=== PATIENT | male | born 1990 | race Caucasian/White ===

== ENCOUNTER 2019-02-11 09:47 | Emergency (ER) | payer OTHER ==
[~2019-02-11] VITALS: Ht 180.3 cm; Wt 90.7 kg
[2019-02-11 09:57] VITALS: Ht 180.3 cm; Wt 90.7 kg
[2019-02-11 13:43] VITALS: BP 103/75
== END 2019-02-11 13:43 | disposition home or self-care (01) ==
LOC: ED 09:47
DX: S80.02XA Contusion of left knee, initial encounter (principal); W31.89XA Contact with other specified machinery, initial encounter; Y93.89 Activity, other specified; Y92.89 Other specified places as the place of occurrence of the external cause; Y99.8 Other external cause status
CPT/HCPCS: 90715; Q0092

== ENCOUNTER 2019-11-21 04:36 | Emergency (ER) | payer OTHER ==
[~2019-11-21] VITALS: Ht 180.3 cm; Wt 93.0 kg
[2019-11-21 04:45] VITALS: Ht 180.3 cm; Wt 93.0 kg
[2019-11-21 07:27] VITALS: BP 138/92
== END 2019-11-21 07:27 | disposition home or self-care (01) ==
LOC: ED 04:36
DX: M54.5 Low back pain (principal)
CPT/HCPCS: J1885